=== PATIENT | female | born 1945 | race Caucasian/White ===

== ENCOUNTER 2023-07-07 20:30 | Inpatient (IN) | payer MEDICARE ==
[~2023-07-07] VITALS: Ht 152.4 cm; Wt 46.9 kg
[2023-07-07 20:00] VITALS: BP 122/69; TEMP 98.2; O2SAT 94
[2023-07-07] MEDS ORDERED: REMEDY ESSENTIAL ZINC PASTE 113 GM TOP PRN (21:15)
[2023-07-07] MEDS ORDERED: AMLO-212 PO (21:52)
[2023-07-07] MEDS ORDERED: CHOL100034 PO (21:52)
[2023-07-07] MEDS ORDERED: DILT180C91 PO ×2 (21:52→23:11)
[2023-07-07] MEDS ORDERED: ROSU5TAB PO (21:52)
[2023-07-07] MEDS ORDERED: PANT40TA49 PO (21:52)
[2023-07-07] MEDS ORDERED: LOSA50TA39 PO (21:52)
[2023-07-07] MEDS ORDERED: POLY250017 PO (21:52)
[2023-07-07] MEDS ORDERED: METO50TA16 PO (21:52)
[2023-07-07] MEDS ORDERED: LATA2.5D15 EACHEYE (21:52)
[2023-07-07] MEDS ORDERED: APIX5TAB4 PO (21:52)
[2023-07-07] MEDS ORDERED: SUCR1TAB PO (21:52)
[2023-07-07] MEDS ORDERED: DIGO125T PO (21:52)
[2023-07-07] MEDS ORDERED: CYAN100085 PO (21:52)
[2023-07-07] MEDS ORDERED: DIGOXIN 125 MCG TABLET PO PRN (22:45)
[2023-07-07] MEDS ORDERED: DIGO125T5 PO (23:08)
[2023-07-07] MEDS ORDERED: CHOL100062 PO (23:16)
[2023-07-08 04:00] VITALS: BP 107/75; TEMP 97.5; O2SAT 94
[2023-07-08] MEDS: PANTOPRAZOLE SODIUM 40 MG TABLET.DR PO SCH (06:26)
[2023-07-08] MEDS: METOPROLOL TARTRATE 50 MG TABLET PO SCH ×3 (06:26→21:59)
[2023-07-08] MEDS: SUCRALFATE 1 G TABLET PO SCH ×4 (06:43→21:49)
[2023-07-08 07:55] VITALS: BP 115/66; TEMP 98.2; O2SAT 94
[2023-07-08] MEDS ORDERED: HYDROCORTISONE 1% CREAM 30 GM TUBE TP PRN (08:15)
[2023-07-08] MEDS ORDERED: CHOLECALCIFEROL PO SCH (09:00)
[2023-07-08] MEDS ORDERED: DILTIAZEM HCL CD 180 MG CAP.SR.24H PO SCH (09:00)
[2023-07-08] MEDS: ONDANSETRON HCL 4 MG TABLET PO PRN ×2 (10:05→22:41)
[2023-07-08] MEDS: MIRALAX 17 GM POWD.PACK PO SCH (11:18)
[2023-07-08] MEDS: DIGOXIN 125 MCG TABLET PO SCH (11:19)
[2023-07-08] MEDS: CHOLECALCIFEROL 1,000 UNIT TABLET PO SCH (11:19)
[2023-07-08] MEDS: CYANOCOBALAMIN 1,000 MCG TABLET PO SCH (11:19)
[2023-07-08] MEDS: DILTIAZEM HCL CD 180 MG CAP.SR.24H PO SCH (11:20)
[2023-07-08] MEDS: APIXABAN 5 MG TABLET PO SCH ×2 (11:21→21:51)
[2023-07-08] MEDS ORDERED: FURO20TA4 PO (12:51)
[2023-07-08] MEDS ORDERED: POTA10CA43 PO (12:51)
[2023-07-08] MEDS ORDERED: CYAN-51 PO (12:54)
[2023-07-08] MEDS ORDERED: MAGN400T30 PO (12:54)
[2023-07-08 15:42] VITALS: BP 100/74; TEMP 98.4; O2SAT 94
[2023-07-08 20:00] VITALS: BP 102/71; TEMP 97.9; O2SAT 93
[2023-07-08] MEDS: LATANOPROST OPHT DROP 2.5 ML BOTTLE EACHEYE SCH (21:49)
[2023-07-08] MEDS: ATORVASTATIN 10 MG TABLET PO SCH (21:49)
[2023-07-08] MEDS: REMEDY ESSENTIAL ZINC PASTE 113 GM TP SCH (21:52)
[2023-07-09 04:00] VITALS: BP 112/72; TEMP 98; O2SAT 93
[2023-07-09] MEDS: PANTOPRAZOLE SODIUM 40 MG TABLET.DR PO SCH (06:39)
[2023-07-09] MEDS: METOPROLOL TARTRATE 50 MG TABLET PO SCH ×3 (06:39→22:00)
[2023-07-09] MEDS: SUCRALFATE 1 G TABLET PO SCH ×4 (07:49→20:31)
[2023-07-09 07:54] VITALS: BP 125/80; TEMP 97.6; O2SAT 96
[2023-07-09] MEDS: ERYTHROMYCIN ETHYLSUCC 200 MG/5 ML SUSPENSION 100ML PO SCH ×3 (09:43→22:05)
[2023-07-09] MEDS: REMEDY ESSENTIAL ZINC PASTE 113 GM TP SCH ×2 (09:45→20:32)
[2023-07-09] MEDS: MIRALAX 17 GM POWD.PACK PO SCH (11:16)
[2023-07-09] MEDS: CYANOCOBALAMIN 1,000 MCG TABLET PO SCH (11:16)
[2023-07-09] MEDS: DIGOXIN 125 MCG TABLET PO SCH (11:17)
[2023-07-09] MEDS: DILTIAZEM HCL CD 180 MG CAP.SR.24H PO SCH (11:17)
[2023-07-09] MEDS: CHOLECALCIFEROL 1,000 UNIT TABLET PO SCH (11:17)
[2023-07-09] MEDS: MAGNESIUM OXIDE 400 MG TABLET PO SCH (11:17)
[2023-07-09] MEDS: APIXABAN 5 MG TABLET PO SCH ×2 (11:19→20:31)
[2023-07-09] MEDS: ONDANSETRON HCL 4 MG TABLET PO PRN (11:50)
[2023-07-09 16:15] VITALS: BP 115/73; TEMP 97.6; O2SAT 94
[2023-07-09] MEDS ORDERED: HYDROCORTISONE 1% CREAM 30 GM TUBE TP PRN (17:00)
[2023-07-09] MEDS: GLUCERNA SHAKE 237 ML CAN PO SCH (17:15)
[2023-07-09 20:00] VITALS: BP 102/55; TEMP 97.7; O2SAT 93
[2023-07-09] MEDS: ATORVASTATIN 10 MG TABLET PO SCH (20:31)
[2023-07-09] MEDS: LATANOPROST OPHT DROP 2.5 ML BOTTLE EACHEYE SCH (20:31)
[2023-07-10] MEDS: METOPROLOL TARTRATE 50 MG TABLET PO SCH ×3 (06:00→21:16)
[2023-07-10] MEDS: ERYTHROMYCIN ETHYLSUCC 200 MG/5 ML SUSPENSION 100ML PO SCH ×3 (06:11→21:16)
[2023-07-10] MEDS: PANTOPRAZOLE SODIUM 40 MG TABLET.DR PO SCH (06:46)
[2023-07-10 07:01] VITALS: BP 94/53; TEMP 97.5; O2SAT 94
[2023-07-10 07:36] LABS: BASOPHILS % (AUTO) 0.3 % (0.0-2.0); EOSINOPHILS # (AUTO) 0.1 K/uL (0.0-0.7); EOSINOPHILS % (AUTO) 1.2 % (0.0-7.0); HEMATOCRIT 37.1 % (31.2-41.9); HEMOGLOBIN 12.4 g/dL (10.9-14.3); LYMPHOCYTES # (AUTO) 1.1 K/uL (0.8-4.8); LYMPHOCYTES % (AUTO) 12.3 % (20.5-51.5); MEAN CORPUSCULAR HEMOGLOBIN 29.8 uug (24.7-32.8); MEAN CORPUSCULAR HGB CONC 34 g/dL (32.3-35.6); MEAN CORPUSCULAR VOLUME 88.8 fL (75.5-95.3); MONOCYTES # (AUTO) 0.6 K/uL (0.1-1.30); MONOCYTES % (AUTO) 6.6 % (0.0-11.0); NEUTROPHILS # (AUTO) 6.8 K/uL (1.8-8.9); NEUTROPHILS % (AUTO) 79.6 % (38.5-71.5); PLATELET COUNT (AUTO) 279 K/uL (179-408); RED BLOOD CELL COUNT(AUTO) 4.17 MIL/uL (3.63-4.92); RED CELL DISTRIBUTION WIDTH 15.4 % (12.3-17.7); WHITE BLOOD COUNT (AUTO) 8.5 K/uL (3.8-11.8)
[2023-07-10 07:37] LABS: DIFFERENTIAL COMMENT 1
[2023-07-10 07:46] LABS: CARBON DIOXIDE 30 mmol/L (21-32); CHLORIDE 99 mmol/L (98-107); CREATININE 0.5 mg/dL (0.6-1.3); GLUCOSE 105 mg/dL (74-106); SODIUM SERUM 135 mmol/L (136-145); UREA NITROGEN, BLOOD 10 mg/dL (7-18)
[2023-07-10 07:49] VITALS: BP 143/81; TEMP 98.1; O2SAT 98
[2023-07-10 08:05] LABS: POTASSIUM 3.6 mmol/L (3.5-5.1)
[2023-07-10] MEDS ORDERED: POTASSIUM CHLORIDE 20 MEQ POWDER PACKET GT ONE (08:30)
[2023-07-10] MEDS ORDERED: POTASSIUM CHLORIDE 20 MEQ TAB.PRT.SR PO ONE (08:30)
[2023-07-10] MEDS: GLUCERNA SHAKE 237 ML CAN PO SCH ×2 (09:29→12:38)
[2023-07-10] MEDS: DIGOXIN 125 MCG TABLET PO SCH (09:38)
[2023-07-10] MEDS: DILTIAZEM HCL CD 180 MG CAP.SR.24H PO SCH (09:38)
[2023-07-10] MEDS: CYANOCOBALAMIN 1,000 MCG TABLET PO SCH (09:38)
[2023-07-10] MEDS: MAGNESIUM OXIDE 400 MG TABLET PO SCH (09:38)
[2023-07-10] MEDS: CHOLECALCIFEROL 1,000 UNIT TABLET PO SCH (09:38)
[2023-07-10] MEDS: REMEDY ESSENTIAL ZINC PASTE 113 GM TP SCH ×2 (09:39→20:31)
[2023-07-10] MEDS: MIRALAX 17 GM POWD.PACK PO SCH (09:39)
[2023-07-10] MEDS: APIXABAN 5 MG TABLET PO SCH ×2 (09:43→20:31)
[2023-07-10] MEDS: SUCRALFATE 1 G TABLET PO SCH ×4 (09:43→20:30)
[2023-07-10] MEDS: ENSURE ENLIVE (VAN) 240 ML LIQUID PO SCH ×2 (12:46→16:22)
[2023-07-10 15:33] VITALS: BP 96/53; TEMP 98.5; O2SAT 96
[2023-07-10 20:20] VITALS: BP 119/56; TEMP 97.7; O2SAT 99
[2023-07-10] MEDS: ATORVASTATIN 10 MG TABLET PO SCH (20:30)
[2023-07-10] MEDS: LATANOPROST OPHT DROP 2.5 ML BOTTLE EACHEYE SCH (20:47)
[2023-07-11 03:50] VITALS: BP 115/53; TEMP 97.4; O2SAT 94
[2023-07-11] MEDS: METOPROLOL TARTRATE 50 MG TABLET PO SCH ×3 (05:18→22:18)
[2023-07-11] MEDS: ERYTHROMYCIN ETHYLSUCC 200 MG/5 ML SUSPENSION 100ML PO SCH ×3 (06:05→22:16)
[2023-07-11] MEDS: PANTOPRAZOLE SODIUM 40 MG TABLET.DR PO SCH (06:05)
[2023-07-11 08:00] VITALS: BP 100/67; TEMP 97.9; O2SAT 91
[2023-07-11 08:06] VITALS: BP 100/67; TEMP 97.9; O2SAT 91
[2023-07-11] MEDS: DIGOXIN 125 MCG TABLET PO SCH (09:39)
[2023-07-11] MEDS: CHOLECALCIFEROL 1,000 UNIT TABLET PO SCH (09:40)
[2023-07-11] MEDS: DILTIAZEM HCL CD 180 MG CAP.SR.24H PO SCH (09:40)
[2023-07-11] MEDS: MAGNESIUM OXIDE 400 MG TABLET PO SCH (09:41)
[2023-07-11] MEDS: CYANOCOBALAMIN 1,000 MCG TABLET PO SCH (09:41)
[2023-07-11] MEDS: APIXABAN 5 MG TABLET PO SCH ×2 (09:41→20:38)
[2023-07-11] MEDS: ENSURE ENLIVE (VAN) 240 ML LIQUID PO SCH ×3 (09:41→18:05)
[2023-07-11] MEDS: MIRALAX 17 GM POWD.PACK PO SCH (09:42)
[2023-07-11] MEDS: REMEDY ESSENTIAL ZINC PASTE 113 GM TP SCH ×2 (09:42→20:32)
[2023-07-11] MEDS: SUCRALFATE 1 G TABLET PO SCH ×4 (09:49→20:32)
[2023-07-11 16:45] VITALS: BP 89/52; TEMP 97.5; O2SAT 93
[2023-07-11] MEDS ORDERED: FLEET ENEMA 133 ML BOTTLE RC ONE (19:45)
[2023-07-11 20:00] VITALS: BP 119/65; TEMP 97.6; O2SAT 92
[2023-07-11] MEDS: LATANOPROST OPHT DROP 2.5 ML BOTTLE EACHEYE SCH (20:31)
[2023-07-11] MEDS: ATORVASTATIN 10 MG TABLET PO SCH (20:39)
[2023-07-11 23:25] LABS: *BILIRUBIN,URIN NEGATIVE (NEGATIVE); *BLOOD, URINE 3+ (NEGATIVE); *CLARITY,URINE TURBID (CLEAR); *COLOR,URINE DARK YELLOW (YELLOW); *KETONES,URINE NEGATIVE (NEGATIVE); *PROTEIN,URINE 2+ (NEGATIVE); BACTERIA,URINE MANY /HPF (NONE SEEN); LEUKOCYTE ESTERASE ,URINE 3+ (NEGATIVE); NITRITE, URINE POSITIVE (NEGATIVE); SQUAMOUS EPITHELIAL CELL,UR FEW /HPF (NONE SEEN); UGLUCOSE NEGATIVE (NEGATIVE); WBC,URINE TNTC /HPF (0-3)
[2023-07-12 04:00] VITALS: BP 112/65; TEMP 98; O2SAT 94
[2023-07-12] MEDS: METOPROLOL TARTRATE 50 MG TABLET PO SCH ×3 (05:45→21:50)
[2023-07-12] MEDS: PANTOPRAZOLE SODIUM 40 MG TABLET.DR PO SCH (05:45)
[2023-07-12] MEDS: ERYTHROMYCIN ETHYLSUCC 200 MG/5 ML SUSPENSION 100ML PO SCH ×3 (05:45→21:51)
[2023-07-12] MEDS: SUCRALFATE 1 G TABLET PO SCH ×4 (07:39→21:41)
[2023-07-12 08:00] VITALS: BP 90/51; TEMP 97.2; O2SAT 94
[2023-07-12 08:35] LABS: BASOPHILS # (AUTO) 0.1 K/UL (0.0-0.2); BASOPHILS % (AUTO) 0.7 % (0.0-2.0); EOSINOPHILS # (AUTO) 0.1 K/uL (0.0-0.7); EOSINOPHILS % (AUTO) 1.9 % (0.0-7.0); HEMATOCRIT 37.5 % (31.2-41.9); HEMOGLOBIN 12.5 g/dL (10.9-14.3); LYMPHOCYTES # (AUTO) 1.3 K/uL (0.8-4.8); LYMPHOCYTES % (AUTO) 17.7 % (20.5-51.5); MEAN CORPUSCULAR HEMOGLOBIN 29.7 uug (24.7-32.8); MEAN CORPUSCULAR HGB CONC 33 g/dL (32.3-35.6); MEAN CORPUSCULAR VOLUME 89.2 fL (75.5-95.3); MONOCYTES # (AUTO) 0.5 K/uL (0.1-1.30); NEUTROPHILS # (AUTO) 5.3 K/uL (1.8-8.9); NEUTROPHILS % (AUTO) 72.7 % (38.5-71.5); PLATELET COUNT (AUTO) 316 K/uL (179-408); RED CELL DISTRIBUTION WIDTH 15.8 % (12.3-17.7); WHITE BLOOD COUNT (AUTO) 7.3 K/uL (3.8-11.8)
[2023-07-12 08:48] LABS: CALCIUM 8.3 mg/dL (8.5-10.1); CARBON DIOXIDE 32 mmol/L (21-32); CHLORIDE 98 mmol/L (98-107); CREATININE 0.6 mg/dL (0.6-1.3); GLUCOSE 113 mg/dL (74-106); POTASSIUM 3.6 mmol/L (3.5-5.1); SODIUM SERUM 134 mmol/L (136-145); UREA NITROGEN, BLOOD 10 mg/dL (7-18)
[2023-07-12 08:53] LABS: DIFFERENTIAL COMMENT 1
[2023-07-12] MEDS: CEFTRIAXONE 1 G in IV DEXTROSE 5% 50 ML IV SCH (09:13)
[2023-07-12] MEDS: CHOLECALCIFEROL 1,000 UNIT TABLET PO SCH (09:13)
[2023-07-12] MEDS: APIXABAN 5 MG TABLET PO SCH ×2 (09:13→21:46)
[2023-07-12] MEDS: MAGNESIUM OXIDE 400 MG TABLET PO SCH (09:13)
[2023-07-12] MEDS: MIRALAX 17 GM POWD.PACK PO SCH (09:14)
[2023-07-12] MEDS: DILTIAZEM HCL CD 180 MG CAP.SR.24H PO SCH (09:14)
[2023-07-12] MEDS: CYANOCOBALAMIN 1,000 MCG TABLET PO SCH (09:14)
[2023-07-12] MEDS: DIGOXIN 125 MCG TABLET PO SCH (09:14)
[2023-07-12] MEDS: REMEDY ESSENTIAL ZINC PASTE 113 GM TP SCH ×2 (09:15→21:50)
[2023-07-12] MEDS: ENSURE ENLIVE (VAN) 240 ML LIQUID PO SCH ×3 (09:16→16:25)
[2023-07-12 16:24] VITALS: BP 100/57; TEMP 98.6; O2SAT 93
[2023-07-12 20:36] VITALS: BP 101/55; TEMP 98.3; O2SAT 93
[2023-07-12] MEDS: LATANOPROST OPHT DROP 2.5 ML BOTTLE EACHEYE SCH (21:41)
[2023-07-12] MEDS: ATORVASTATIN 10 MG TABLET PO SCH (21:42)
[2023-07-13 05:18] VITALS: BP 121/74; TEMP 97.6; O2SAT 94
[2023-07-13] MEDS: ERYTHROMYCIN ETHYLSUCC 200 MG/5 ML SUSPENSION 100ML PO SCH ×3 (06:04→21:59)
[2023-07-13] MEDS: METOPROLOL TARTRATE 50 MG TABLET PO SCH ×3 (06:08→22:00)
[2023-07-13] MEDS: PANTOPRAZOLE SODIUM 40 MG TABLET.DR PO SCH (06:38)
[2023-07-13] MEDS: SUCRALFATE 1 G TABLET PO SCH ×4 (06:38→20:47)
[2023-07-13 06:51] LABS: BASOPHILS % (AUTO) 0.6 % (0.0-2.0); EOSINOPHILS # (AUTO) 0.1 K/uL (0.0-0.7); HEMATOCRIT 35.5 % (31.2-41.9); HEMOGLOBIN 11.8 g/dL (10.9-14.3); LYMPHOCYTES # (AUTO) 1.5 K/uL (0.8-4.8); MEAN CORPUSCULAR HEMOGLOBIN 29.7 uug (24.7-32.8); MEAN CORPUSCULAR HGB CONC 33 g/dL (32.3-35.6); MEAN CORPUSCULAR VOLUME 89.6 fL (75.5-95.3); MONOCYTES # (AUTO) 0.5 K/uL (0.1-1.30); MONOCYTES % (AUTO) 6.7 % (0.0-11.0); NEUTROPHILS # (AUTO) 4.6 K/uL (1.8-8.9); NEUTROPHILS % (AUTO) 68.7 % (38.5-71.5); PLATELET COUNT (AUTO) 286 K/uL (179-408); RED BLOOD CELL COUNT(AUTO) 3.96 MIL/uL (3.63-4.92); RED CELL DISTRIBUTION WIDTH 15.7 % (12.3-17.7); WHITE BLOOD COUNT (AUTO) 6.8 K/uL (3.8-11.8)
[2023-07-13 07:07] LABS: CALCIUM 8.4 mg/dL (8.5-10.1); CARBON DIOXIDE 30 mmol/L (21-32); CHLORIDE 101 mmol/L (98-107); CREATININE 0.4 mg/dL (0.6-1.3); GLUCOSE 108 mg/dL (74-106); POTASSIUM 3.9 mmol/L (3.5-5.1); SODIUM SERUM 136 mmol/L (136-145); UREA NITROGEN, BLOOD 12 mg/dL (7-18)
[2023-07-13 07:36] LABS: DIFFERENTIAL COMMENT 1
[2023-07-13 08:00] VITALS: BP 113/77; TEMP 97.8; O2SAT 97
[2023-07-13] MEDS: CYANOCOBALAMIN 1,000 MCG TABLET PO SCH (08:18)
[2023-07-13] MEDS: APIXABAN 5 MG TABLET PO SCH ×2 (08:18→20:47)
[2023-07-13] MEDS: DILTIAZEM HCL CD 180 MG CAP.SR.24H PO SCH (08:18)
[2023-07-13] MEDS: DIGOXIN 125 MCG TABLET PO SCH (08:18)
[2023-07-13] MEDS: CHOLECALCIFEROL 1,000 UNIT TABLET PO SCH (08:18)
[2023-07-13] MEDS: MAGNESIUM OXIDE 400 MG TABLET PO SCH (08:19)
[2023-07-13] MEDS: MIRALAX 17 GM POWD.PACK PO SCH (08:19)
[2023-07-13] MEDS: CEFTRIAXONE 1 G in IV DEXTROSE 5% 50 ML IV SCH (08:31)
[2023-07-13] MEDS: REMEDY ESSENTIAL ZINC PASTE 113 GM TP SCH ×2 (08:43→20:47)
[2023-07-13] MEDS: ENSURE ENLIVE (VAN) 240 ML LIQUID PO SCH ×3 (08:43→16:13)
[2023-07-13 20:18] VITALS: BP 98/54; TEMP 97.6; O2SAT 100
[2023-07-13] MEDS: ATORVASTATIN 10 MG TABLET PO SCH (20:47)
[2023-07-13] MEDS: LATANOPROST OPHT DROP 2.5 ML BOTTLE EACHEYE SCH (20:48)
[2023-07-14 05:11] VITALS: BP 105/68; TEMP 97.4; O2SAT 97
[2023-07-14] MEDS: ERYTHROMYCIN ETHYLSUCC 200 MG/5 ML SUSPENSION 100ML PO SCH ×3 (06:06→20:48)
[2023-07-14] MEDS: METOPROLOL TARTRATE 50 MG TABLET PO SCH ×3 (06:10→22:10)
[2023-07-14] MEDS: PANTOPRAZOLE SODIUM 40 MG TABLET.DR PO SCH (06:29)
[2023-07-14] MEDS: SUCRALFATE 1 G TABLET PO SCH ×4 (06:31→20:43)
[2023-07-14 07:30] LABS: BASOPHILS % (AUTO) 0.9 % (0.0-2.0); EOSINOPHILS # (AUTO) 0.1 K/uL (0.0-0.7); EOSINOPHILS % (AUTO) 2.7 % (0.0-7.0); HEMATOCRIT 34.8 % (31.2-41.9); HEMOGLOBIN 11.5 g/dL (10.9-14.3); LYMPHOCYTES # (AUTO) 1.1 K/uL (0.8-4.8); LYMPHOCYTES % (AUTO) 21.5 % (20.5-51.5); MEAN CORPUSCULAR HEMOGLOBIN 29.5 uug (24.7-32.8); MEAN CORPUSCULAR HGB CONC 33 g/dL (32.3-35.6); MEAN CORPUSCULAR VOLUME 89.1 fL (75.5-95.3); MONOCYTES # (AUTO) 0.4 K/uL (0.1-1.30); NEUTROPHILS # (AUTO) 3.6 K/uL (1.8-8.9); NEUTROPHILS % (AUTO) 67.9 % (38.5-71.5); PLATELET COUNT (AUTO) 266 K/uL (179-408); RED CELL DISTRIBUTION WIDTH 15.9 % (12.3-17.7); WHITE BLOOD COUNT (AUTO) 5.2 K/uL (3.8-11.8)
[2023-07-14 07:43] VITALS: BP 116/81; TEMP 97.9; O2SAT 97
[2023-07-14 07:46] LABS: DIFFERENTIAL COMMENT 1
[2023-07-14 08:03] LABS: CALCIUM 7.9 mg/dL (8.5-10.1); CARBON DIOXIDE 29 mmol/L (21-32); CHLORIDE 100 mmol/L (98-107); CREATININE 0.5 mg/dL (0.6-1.3); GLUCOSE 117 mg/dL (74-106); POTASSIUM 3.5 mmol/L (3.5-5.1); SODIUM SERUM 136 mmol/L (136-145); UREA NITROGEN, BLOOD 9 mg/dL (7-18)
[2023-07-14] MEDS: CYANOCOBALAMIN 1,000 MCG TABLET PO SCH (08:05)
[2023-07-14] MEDS: DILTIAZEM HCL CD 180 MG CAP.SR.24H PO SCH (08:05)
[2023-07-14] MEDS: CHOLECALCIFEROL 1,000 UNIT TABLET PO SCH (08:05)
[2023-07-14] MEDS: APIXABAN 5 MG TABLET PO SCH ×2 (08:06→20:37)
[2023-07-14] MEDS: DIGOXIN 125 MCG TABLET PO SCH (08:06)
[2023-07-14] MEDS: MIRALAX 17 GM POWD.PACK PO SCH (08:13)
[2023-07-14] MEDS: MAGNESIUM OXIDE 400 MG TABLET PO SCH (08:15)
[2023-07-14] MEDS: ENSURE ENLIVE (VAN) 240 ML LIQUID PO SCH ×3 (08:29→16:06)
[2023-07-14] MEDS ORDERED: POTASSIUM CHLORIDE 20 MEQ POWDER PACKET GT ONE (08:30)
[2023-07-14] MEDS: CEFTRIAXONE 1 G in IV DEXTROSE 5% 50 ML IV SCH (08:53)
[2023-07-14] MEDS: REMEDY ESSENTIAL ZINC PASTE 113 GM TP SCH ×2 (08:55→20:42)
[2023-07-14] MEDS ORDERED: POTASSIUM CHLORIDE 20 MEQ TAB.PRT.SR PO ONE (09:00)
[2023-07-14 14:56] VITALS: BP 103/56; TEMP 98; O2SAT 96
[2023-07-14 20:24] VITALS: BP 111/77; TEMP 97.4; O2SAT 97
[2023-07-14] MEDS: ATORVASTATIN 10 MG TABLET PO SCH (20:35)
[2023-07-14] MEDS: LATANOPROST OPHT DROP 2.5 ML BOTTLE EACHEYE SCH (21:00)
[2023-07-15 04:28] VITALS: BP 109/66; TEMP 97.9; O2SAT 95
[2023-07-15] MEDS: ERYTHROMYCIN ETHYLSUCC 200 MG/5 ML SUSPENSION 100ML PO SCH ×3 (06:02→21:20)
[2023-07-15] MEDS: PANTOPRAZOLE SODIUM 40 MG TABLET.DR PO SCH (06:03)
[2023-07-15] MEDS: METOPROLOL TARTRATE 50 MG TABLET PO SCH ×3 (06:03→21:22)
[2023-07-15 08:00] VITALS: BP 137/87; TEMP 97.9; O2SAT 97
[2023-07-15] MEDS: CYANOCOBALAMIN 1,000 MCG TABLET PO SCH (08:18)
[2023-07-15] MEDS: MIRALAX 17 GM POWD.PACK PO SCH (08:18)
[2023-07-15] MEDS: DILTIAZEM HCL CD 180 MG CAP.SR.24H PO SCH (08:18)
[2023-07-15] MEDS: CHOLECALCIFEROL 1,000 UNIT TABLET PO SCH (08:18)
[2023-07-15] MEDS: SUCRALFATE 1 G TABLET PO SCH ×4 (08:18→20:31)
[2023-07-15] MEDS: MAGNESIUM OXIDE 400 MG TABLET PO SCH (08:18)
[2023-07-15] MEDS: DIGOXIN 125 MCG TABLET PO SCH (08:18)
[2023-07-15] MEDS: APIXABAN 5 MG TABLET PO SCH ×2 (08:19→20:39)
[2023-07-15] MEDS: CEFTRIAXONE 1 G in IV DEXTROSE 5% 50 ML IV SCH (08:21)
[2023-07-15] MEDS: ENSURE ENLIVE (VAN) 240 ML LIQUID PO SCH ×3 (08:50→16:05)
[2023-07-15] MEDS: REMEDY ESSENTIAL ZINC PASTE 113 GM TP SCH ×2 (08:51→20:39)
[2023-07-15 18:16] VITALS: BP 109/71; TEMP 97.5; O2SAT 97
[2023-07-15 19:30] VITALS: BP 109/78; TEMP 97.7; O2SAT 96
[2023-07-15] MEDS: ATORVASTATIN 10 MG TABLET PO SCH (20:31)
[2023-07-15] MEDS: LATANOPROST OPHT DROP 2.5 ML BOTTLE EACHEYE SCH (20:51)
[2023-07-16] MEDS: PANTOPRAZOLE SODIUM 40 MG TABLET.DR PO SCH (06:01)
[2023-07-16] MEDS: ERYTHROMYCIN ETHYLSUCC 200 MG/5 ML SUSPENSION 100ML PO SCH ×3 (06:01→21:40)
[2023-07-16] MEDS: METOPROLOL TARTRATE 50 MG TABLET PO SCH ×3 (06:02→22:00)
[2023-07-16 06:39] VITALS: BP 119/78; TEMP 97.7; O2SAT 96
[2023-07-16] MEDS: MAGNESIUM OXIDE 400 MG TABLET PO SCH (08:41)
[2023-07-16] MEDS: DILTIAZEM HCL CD 180 MG CAP.SR.24H PO SCH (08:41)
[2023-07-16] MEDS: DIGOXIN 125 MCG TABLET PO SCH (08:41)
[2023-07-16] MEDS: CHOLECALCIFEROL 1,000 UNIT TABLET PO SCH (08:41)
[2023-07-16] MEDS: SUCRALFATE 1 G TABLET PO SCH ×4 (08:42→20:17)
[2023-07-16] MEDS: APIXABAN 5 MG TABLET PO SCH ×2 (08:43→20:17)
[2023-07-16] MEDS: MIRALAX 17 GM POWD.PACK PO SCH (08:43)
[2023-07-16] MEDS: CYANOCOBALAMIN 1,000 MCG TABLET PO SCH (08:43)
[2023-07-16] MEDS: REMEDY ESSENTIAL ZINC PASTE 113 GM TP SCH ×2 (08:44→20:17)
[2023-07-16] MEDS: ENSURE ENLIVE (VAN) 240 ML LIQUID PO SCH ×3 (08:51→17:21)
[2023-07-16 15:45] VITALS: BP 101/64; TEMP 98; O2SAT 95
[2023-07-16 20:00] VITALS: BP 101/68; TEMP 97.7; O2SAT 97
[2023-07-16] MEDS: ATORVASTATIN 10 MG TABLET PO SCH (20:17)
[2023-07-16] MEDS: LATANOPROST OPHT DROP 2.5 ML BOTTLE EACHEYE SCH (20:54)
[2023-07-17] MEDS: ERYTHROMYCIN ETHYLSUCC 200 MG/5 ML SUSPENSION 100ML PO SCH ×3 (05:36→22:03)
[2023-07-17] MEDS: METOPROLOL TARTRATE 50 MG TABLET PO SCH ×2 (05:37→21:57)
[2023-07-17 06:40] VITALS: BP 134/72; TEMP 97.6; O2SAT 95
[2023-07-17] MEDS: PANTOPRAZOLE SODIUM 40 MG TABLET.DR PO SCH (06:44)
[2023-07-17 07:43] LABS: BASOPHILS % (AUTO) 0.8 % (0.0-2.0); EOSINOPHILS # (AUTO) 0.2 K/uL (0.0-0.7); EOSINOPHILS % (AUTO) 4.2 % (0.0-7.0); HEMATOCRIT 33.6 % (31.2-41.9); HEMOGLOBIN 11.2 g/dL (10.9-14.3); LYMPHOCYTES # (AUTO) 1.2 K/uL (0.8-4.8); LYMPHOCYTES % (AUTO) 32.6 % (20.5-51.5); MEAN CORPUSCULAR HEMOGLOBIN 29.7 uug (24.7-32.8); MEAN CORPUSCULAR HGB CONC 33 g/dL (32.3-35.6); MEAN CORPUSCULAR VOLUME 89.3 fL (75.5-95.3); MONOCYTES # (AUTO) 0.4 K/uL (0.1-1.30); MONOCYTES % (AUTO) 9.5 % (0.0-11.0); NEUTROPHILS % (AUTO) 52.9 % (38.5-71.5); PLATELET COUNT (AUTO) 256 K/uL (179-408); RED BLOOD CELL COUNT(AUTO) 3.76 MIL/uL (3.63-4.92); RED CELL DISTRIBUTION WIDTH 16.5 % (12.3-17.7); WHITE BLOOD COUNT (AUTO) 3.8 K/uL (3.8-11.8)
[2023-07-17 07:53] LABS: DIFFERENTIAL COMMENT 1
[2023-07-17] MEDS: SUCRALFATE 1 G TABLET PO SCH ×4 (07:59→21:49)
[2023-07-17 08:00] VITALS: BP 124/80; TEMP 97.7; O2SAT 97
[2023-07-17 08:06] LABS: THYROID STIMULATING HORMONE 2.512 mIU/mL (0.358-3.740)
[2023-07-17] MEDS: MAGNESIUM OXIDE 400 MG TABLET PO SCH (08:37)
[2023-07-17] MEDS: CHOLECALCIFEROL 1,000 UNIT TABLET PO SCH (08:37)
[2023-07-17] MEDS: CYANOCOBALAMIN 1,000 MCG TABLET PO SCH (08:37)
[2023-07-17] MEDS: MIRALAX 17 GM POWD.PACK PO SCH (08:37)
[2023-07-17] MEDS: DIGOXIN 125 MCG TABLET PO SCH (08:38)
[2023-07-17] MEDS: DILTIAZEM HCL CD 180 MG CAP.SR.24H PO SCH (08:38)
[2023-07-17] MEDS: ENSURE ENLIVE (VAN) 240 ML LIQUID PO SCH ×3 (08:39→17:37)
[2023-07-17] MEDS: APIXABAN 5 MG TABLET PO SCH ×2 (08:39→21:50)
[2023-07-17] MEDS: REMEDY ESSENTIAL ZINC PASTE 113 GM TP SCH ×2 (08:39→21:50)
[2023-07-17 08:52] LABS: ALANINE AMINOTRANSFERASE 26 U/L (14-59); ALBUMIN 2.3 g/dL (3.4-5.0); ALKALINE PHOSPHATASE 50 U/L (50-136); ASPARTATE AMINOTRANSFERASE 18 U/L (15-37); BILIRUBIN,TOTAL 0.5 mg/dL (0.2-1.0); CARBON DIOXIDE 26 mmol/L (21-32); CHLORIDE 104 mmol/L (98-107); CHOLESTEROL 127 mg/dL (<200); CREATININE 0.5 mg/dL (0.6-1.3); GLUCOSE 111 mg/dL (74-106); HDL CHOLESTEROL 58 mg/dL (40-60); MAGNESIUM 2.3 mg/dL (1.8-2.4); PHOSPHOROUS 2.8 mg/dL (2.5-4.9); POTASSIUM 3.3 mmol/L (3.5-5.1); SODIUM SERUM 137 mmol/L (136-145); TOTAL PROTEIN, SERUM 5.3 g/dL (6.4-8.2); TRIGLYCERIDES 68 MG/DL (30-150); UREA NITROGEN, BLOOD 6 mg/dL (7-18)
[2023-07-17 16:00] VITALS: BP 122/88; TEMP 98.1; O2SAT 96
[2023-07-17] MEDS: POTASSIUM CHLORIDE 10 MEQ TAB.PRT.SR PO SCH ×2 (16:00→17:36)
[2023-07-17 20:18] VITALS: BP 131/69; TEMP 98.2; O2SAT 96
[2023-07-17] MEDS: ATORVASTATIN 10 MG TABLET PO SCH (21:48)
[2023-07-17] MEDS: LATANOPROST OPHT DROP 2.5 ML BOTTLE EACHEYE SCH (21:51)
[2023-07-18 04:36] VITALS: BP 110/63; TEMP 98.3; O2SAT 94
[2023-07-18] MEDS: ERYTHROMYCIN ETHYLSUCC 200 MG/5 ML SUSPENSION 100ML PO SCH ×3 (06:26→21:32)
[2023-07-18] MEDS: PANTOPRAZOLE SODIUM 40 MG TABLET.DR PO SCH (06:26)
[2023-07-18] MEDS: SUCRALFATE 1 G TABLET PO SCH ×4 (06:40→21:31)
[2023-07-18] MEDS: ENSURE ENLIVE (VAN) 240 ML LIQUID PO SCH ×3 (09:00→16:34)
[2023-07-18] MEDS: DIGOXIN 125 MCG TABLET PO SCH (10:30)
[2023-07-18] MEDS: DILTIAZEM HCL CD 180 MG CAP.SR.24H PO SCH (10:30)
[2023-07-18] MEDS: MAGNESIUM OXIDE 400 MG TABLET PO SCH (10:31)
[2023-07-18] MEDS: METOPROLOL TARTRATE 50 MG TABLET PO SCH ×2 (10:31→16:33)
[2023-07-18] MEDS: CYANOCOBALAMIN 1,000 MCG TABLET PO SCH (10:31)
[2023-07-18] MEDS: MIRALAX 17 GM POWD.PACK PO SCH (10:36)
[2023-07-18] MEDS: APIXABAN 5 MG TABLET PO SCH ×2 (10:36→21:35)
[2023-07-18] MEDS: REMEDY ESSENTIAL ZINC PASTE 113 GM TP SCH ×2 (10:37→21:32)
[2023-07-18] MEDS: CHOLECALCIFEROL 1,000 UNIT TABLET PO SCH (10:39)
[2023-07-18] MEDS: LATANOPROST OPHT DROP 2.5 ML BOTTLE EACHEYE SCH (21:31)
[2023-07-18] MEDS: ATORVASTATIN 10 MG TABLET PO SCH (21:32)
[2023-07-19] MEDS: PANTOPRAZOLE SODIUM 40 MG TABLET.DR PO SCH (06:21)
[2023-07-19] MEDS: ERYTHROMYCIN ETHYLSUCC 200 MG/5 ML SUSPENSION 100ML PO SCH ×3 (06:21→22:32)
[2023-07-19 06:49] VITALS: BP 138/96; TEMP 97.9
[2023-07-19 07:31] VITALS: BP 133/85; TEMP 98.1; O2SAT 98
[2023-07-19] MEDS: SUCRALFATE 1 G TABLET PO SCH ×4 (08:25→22:26)
[2023-07-19] MEDS: CHOLECALCIFEROL 1,000 UNIT TABLET PO SCH (08:25)
[2023-07-19] MEDS: DIGOXIN 125 MCG TABLET PO SCH (08:25)
[2023-07-19] MEDS: MAGNESIUM OXIDE 400 MG TABLET PO SCH (08:25)
[2023-07-19] MEDS: DILTIAZEM HCL CD 180 MG CAP.SR.24H PO SCH (08:26)
[2023-07-19] MEDS: MIRALAX 17 GM POWD.PACK PO SCH (08:26)
[2023-07-19] MEDS: METOPROLOL TARTRATE 50 MG TABLET PO SCH ×2 (08:26→16:19)
[2023-07-19] MEDS: CYANOCOBALAMIN 1,000 MCG TABLET PO SCH (08:26)
[2023-07-19] MEDS: ENSURE ENLIVE (VAN) 240 ML LIQUID PO SCH ×3 (08:26→17:53)
[2023-07-19] MEDS: APIXABAN 5 MG TABLET PO SCH ×2 (08:36→21:00)
[2023-07-19] MEDS: REMEDY ESSENTIAL ZINC PASTE 113 GM TP SCH ×2 (09:00→21:00)
[2023-07-19 16:21] VITALS: BP 147/98; TEMP 98.1; O2SAT 99
[2023-07-19] MEDS: LATANOPROST OPHT DROP 2.5 ML BOTTLE EACHEYE SCH (21:00)
[2023-07-19 22:24] VITALS: BP 148/87; TEMP 98.1; O2SAT 93
[2023-07-19] MEDS: ATORVASTATIN 10 MG TABLET PO SCH (22:26)
[2023-07-20] MEDS: ERYTHROMYCIN ETHYLSUCC 200 MG/5 ML SUSPENSION 100ML PO SCH (06:43)
[2023-07-20] MEDS: PANTOPRAZOLE SODIUM 40 MG TABLET.DR PO SCH (06:43)
[2023-07-20] MEDS: SUCRALFATE 1 G TABLET PO SCH ×2 (07:09→12:05)
[2023-07-20 08:18] VITALS: BP 150/87
[2023-07-20] MEDS: METOPROLOL TARTRATE 50 MG TABLET PO SCH (08:18)
[2023-07-20] MEDS: CHOLECALCIFEROL 1,000 UNIT TABLET PO SCH (08:18)
[2023-07-20] MEDS: DILTIAZEM HCL CD 180 MG CAP.SR.24H PO SCH (08:18)
[2023-07-20] MEDS: MAGNESIUM OXIDE 400 MG TABLET PO SCH (08:18)
[2023-07-20] MEDS: DIGOXIN 125 MCG TABLET PO SCH (08:18)
[2023-07-20] MEDS: CYANOCOBALAMIN 1,000 MCG TABLET PO SCH (08:18)
[2023-07-20] MEDS: MIRALAX 17 GM POWD.PACK PO SCH (08:19)
[2023-07-20] MEDS: APIXABAN 5 MG TABLET PO SCH (08:19)
[2023-07-20 08:27] VITALS: TEMP 98.2; O2SAT 97
[2023-07-20] MEDS: REMEDY ESSENTIAL ZINC PASTE 113 GM TP SCH (09:16)
[2023-07-20] MEDS: ENSURE ENLIVE (VAN) 240 ML LIQUID PO SCH (09:16)
== END 2023-07-20 12:30 | disposition home health service (06) | DRG 308 ==
PROVIDERS: ADMIT Physical Medicine & Rehabilitation Pain Medicine; ATTEND Physical Medicine & Rehabilitation Pain Medicine
DX: I48.91 Unspecified atrial fibrillation (principal); I50.31 Acute diastolic (congestive) heart failure; E22.2 Syndrome of inappropriate secretion of antidiuretic hormone; N39.0 Urinary tract infection, site not specified; R53.1 Weakness; I49.5 Sick sinus syndrome; K74.60 Unspecified cirrhosis of liver; I11.0 Hypertensive heart disease with heart failure; M06.9 Rheumatoid arthritis, unspecified; K30 Functional dyspepsia; R53.83 Other fatigue; R13.10 Dysphagia, unspecified; K31.84 Gastroparesis; L29.9 Pruritus, unspecified
CPT/HCPCS: 36415; 83735; 84100; 84443; 85025; 97535-GO-CO; A4663; A6209; A6213; C1758; J0696; Q0162